=== PATIENT | male | born 1980 | race Caucasian/White ===

== ENCOUNTER 2016-07-09 20:15 | Emergency (ER) | payer BC ==
[~2016-07-09] VITALS: Ht 165.1 cm; Wt 79.8 kg
[2016-07-09] MEDS ORDERED: CITA20TA11 (20:35)
[2016-07-09] MEDS ORDERED: DOXY100C2 (20:35)
[2016-07-09] MEDS ORDERED: QUET100T31 (20:35)
[2016-07-09] MEDS ORDERED: BUPR-51 (20:35)
[2016-07-09] MEDS ORDERED: SULFAMETH/TRIMETH 800/160 MG TABLET PO ONE (20:45)
[2016-07-09] MEDS ORDERED: SULFAMETH/TRIMETH 800/160 MG TABLET ONE (20:58)
--- NOTE | 2016-07-09 21:03 | NUR ---
mse completed, meds admin, wounf cleaned and dressed, aci rx x1 given, pt ambulated w/o diff/took all belongings.
[2016-07-09 21:05] VITALS: BP 118/70
== END 2016-07-09 21:05 | disposition home or self-care (01) ==
LOC: ER 20:15
DX: Z48.01 Encounter for change or removal of surgical wound dressing (principal); T81.4XXA Infection following a procedure, initial encounter; F15.10 Other stimulant abuse, uncomplicated; F17.200 Nicotine dependence, unspecified, uncomplicated
CPT/HCPCS: A4217; A4663